=== PATIENT | female | born 1960 | race African-American/Black ===

== ENCOUNTER 2017-10-01 13:51 | Emergency (ER) | payer SELFPAY ==
[~2017-10-01] VITALS: Ht 165.1 cm; Wt 90.7 kg
[2017-10-01] MEDS ORDERED: NKM (14:03)
[2017-10-01] MEDS ORDERED: IBUPROFEN600 MG ORAL (14:47)
[2017-10-01 14:50] VITALS: BP 110/78
--- NOTE | 2017-10-01 18:42 | Emergency Room Report ---
History of Present Illness General Chief Complaint: Lower Extremity Injury Source: Patient Present Illness HPI The patient is a 57-year-old female presenting for left knee pain after slipping and falling yesterday. She states that she was at a gas station, slipped, and fell onto her left knee. She denies hitting her head or loss of consciousness. Pain has continued and is an 8/10 dull ache now. Does not radiate. Worse with movement. She states that she does feel some instability while walking. She denies previous knee injury She denies other symptoms including numbness, tingling, back pain, dizziness, shortness of breath, chest Allergies: Coded Allergies: No Known Allergies (Unverified , 10/01/17) Patient History Past Medical History: see triage record Pertinent Family History: none Reviewed Nursing Documentation: PMH: Agreed, PSxH: Agreed Nursing Documentation-PMH Past Medical History: No Stated History Review of Systems All Other Systems: negative except mentioned in HPI Physical Exam Vital Signs Date Time Temp Pulse Resp B/P (MAP) Pulse Ox O2 Delivery O2 Flow Rate FiO2 10/01/17 13:58 97.5 78 16 110/78 96 Room Air Sp02 EP Interpretation: reviewed, normal General Appearance: no apparent distress, alert, GCS 15, non-toxic Head: normocephalic, atraumatic Eyes: bilateral eye normal inspection, bilateral eye PERRL ENT: hearing grossly normal, normal pharynx, no angioedema, normal voice Musculoskeletal: normal range of motion, no calf tenderness, swelling - L medial knee, tender - L medial and anterior knee Neurologic: alert, oriented x3, responsive, motor strength/tone normal, sensory intact, speech normal Psychiatric: judgement/insight normal, memory normal, mood/affect normal, no suicidal/homicidal ideation Skin: normal color, no rash, warm/dry, well hydrated Procedures Splinting Splinting : Consent: Verbal Location: L knee Pre-Made Type: JORGE LUIS wrap Pre-Proc Neuro Vasc Exam: normal Post-Proc Neuro Vasc Exam: normal Patient Tolerated: Well Complications: None Medical Decision Making PA Attestation Dr. Olivera is my supervising physician. Patient management was discussed with my supervising physician Diagnostic Impression: Primary Impression: Sprain of knee Qualified Codes: S83.92XA - Sprain of unspecified site of left knee, initial encounter ER Course The patient is a 57-year-old female presenting for left knee pain after slipping and falling yesterday Ddx considered include but not limited to sprain/strain, fracture, contusion Physical exam: No apparent distress There is tenderness to the left knee over her medial and anterior aspects. No obvious deformity. No ecchymosis. Full active range of motion is intact. Patient walks slowly with antalgic gait X-ray of the left knee unremarkable for bony deformity Left knee Jorge Luis wrap placed She'll be discharged home. She was told she needs to follow up with primary doctor and possibly obtain MRI if pain continues or worsens. ER precautions are given Other X-Ray Diagnostic Results Other X-Ray Diagnostic Results : X-Ray ordered: L knee # of Views/Limited Vs Complete: 3 View Indication: Pain EP Interpretation: Yes PA Xray: Interpretation reviewed, by supervising MD, and agrees with findings. Interpretation: no dislocation, no soft tissue swelling, no fractures Impression: No acute disease Electronically Signed by: George Figueroa PA-C Last Vital Signs Date Time Temp Pulse Resp B/P (MAP) Pulse Ox O2 Delivery O2 Flow Rate FiO2 10/01/17 14:50 97.5 16 110/78 96 Room Air 10/01/17 13:58 78 Status: improved Disposition: HOME, SELF-CARE Condition: Improved Scripts Ibuprofen* (MOTRIN*) 600 Mg Tablet 600 MG ORAL Q8H Y for For Pain, #30 TAB 0 Refills Prov: GEORGE FIGUEROA 10/01/17 Patient Instructions: Knee Sprain Additional Instructions: I discussed my findings with the patient. All questions and concerns have been answered. Treatment and medication compliance have been addressed. I advised the patient that they need to follow up with PMD in 3-5 days. Return to ED if pain remains or worsens, numbness or tingling occurs, new rash is noticed, fever is noticed, or if needed for any reason. Patient verbalized understanding of discharge instructions. GEORGE FIGUEROA Oct 01, 2017 18:42
--- NOTE | 2017-10-02 10:53 | Diagnostic Imaging Report ---
Indication: Pain 3 views of the left knee were obtained. Findings: No acute fracture, malalignment, or joint effusion are identified. Joint space is relatively well-maintained. Impression: Negative for acute injury
== END 2017-10-01 14:50 | disposition home or self-care (01) ==
LOC: EMR 14:05
DX: S83.92XA Sprain of unspecified site of left knee, initial encounter (principal); W01.0XXA Fall on same level from slipping, tripping and stumbling without subsequent striking against object, initial encounter; Y92.524 Gas station as the place of occurrence of the external cause
CPT/HCPCS: 99283